=== PATIENT | female | born 1980 | race African-American/Black ===

== ENCOUNTER → 2016-05-05 | Day surgery (SDC) | payer MEDICARE, MEDICAID ==
--- NOTE | 2016-05-02 17:18 | Pre-op HX & Phy Repo 2 SIG ---
DATE OF ADMISSION: 05/05/2016 DATE OF SURGERY: 05/05/2016. PREOPERATIVE DIAGNOSIS: Vitreous opacification right eye with pupillary membrane. 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 She has had cataract surgery in the past and more recently had a vitrectomy in the right eye in November 2014 with very good results. She now complains of significant blurring on the right, which makes it difficult to doing her daily affairs. She is admitted for a repeat vitrectomy, steroid injection and removal of pupillary membrane and debride on the right eye. PAST MEDICAL HISTORY: Negative except for the uveitis and glaucoma. ALLERGIES: She has no known allergies. MEDICATIONS: Current medications include folic acid, ibuprofen, methotrexate, topical steroids, and anti glaucoma medications. PHYSICAL EXAMINATION: EYES: Best vision at the time of admission was 20/200 in the right eye and 20/60 in the left with pressures of 16. The anterior segment on the right showed an irregular pupil. There was extensive keratotic precipitates on the anterior lens surface and posterior cornea. Here were granulomatous precipitates on the lens and in the iris as well. Capture of the lens was seen by the iris and mild to moderate reaction was noted. A large hanging posterior capsular remnant, which had been previously attempted to be removed with the yanked laser was present partially blocking the view. The left fundus showed extensive flare in the anterior chamber and there were peripheral synechiae and iris pigment on the lens surface. The lens implant was in place. Fundus examination of the right eye was hazy secondary to the vitreous and the caps were debrided. There were laser scars down below at an area of retinoschisis. The remainder all attached however. The left fundus showed vitreous haze and debris. The retina was attached. ASSESSMENT: Severe uveitis of the right eye with retained capsular remnants. PLAN: The plan is to perform a pars plana vitrectomy with lysis and removal of capsular opacities. Additional endolaser will be performed if needed and a steroid injection at the conclusion of procedure. The risks and benefits of surgery gone over the patient including potential for infection, recurrent edema and uveitis, retinal detachment, worsening of the glaucoma, and remote possibility of loss of the eye. The risk of anesthesia was discussed. The patient understands and consents to the surgery, which will be performed on Thursday. Liban Lim M.D. DR: ROSA MARIA JOB#: [id number] CC:
[~2016-05-05] VITALS: Ht 160 cm; Wt 144.2 kg
[2016-05-05] VITALS (11 sets, daily range): BP systolic 100–143; BP diastolic 51–84
[~2016-05-05] MED LIST: BSS 15ml BTL ONE; BSS 500ml btl ONE; Bupivacaine 0.75% 30ml vial INJ ONE; Cyclopentolate 1% Opth Sol ONE; DEPO-PROVE150 MG/11 IM; Dexamethasone 4mg/ml vial ONE; DiphenhydrAMINE 50mg/ml Inj IVP PRN; EPINEPHrine 1mg/1ml Amp ONE; FOLIC ACID1 MG ORAL; Flurbiprofen 0.03% Opth Sol 2.5ml ONE; Gatifloxacin Opth Solution 0.5% ONE; Kenalog-10 5ml Inj ONE; Kenalog-40 1ml Vial ONE; LR 1000ml 1,000 ML IVLG SCH; LR 1000ml ONE; Lidocaine 2% MPF 5ml Vial INJ ONE; METHOTREXATE2.5 MG PO; Maxitrol Opth Oint 3.5gm ONE; Midazolam 2mg/2ml Inj ONE; NS Irrig 1000ml ONE; PRED-G 1% EYE DR5 ML OP; Phenylephrine 2.5% Op Soln ONE; Povidone-Iodine 5% opth solution ONE; Pred Forte 1% Opth Susp 1ml RIGHT EYE ONE; Propofol 10mg/ml 20ml IV ONE; Sodium Hyaluronate 10 mg/ml 0.85ml ONE; Sterile Water Irrig 1000ml IRRIG ONE; Tetracaine 0.5% Opth Soln ONE; Triamcinolone 40mg/ml PF Vial ONE; fentaNYL 100 mcg/2 mL IV ONE; fentaNYL 100 mcg/2 mL IV PRN
[2016-05-05] MEDS: Phenylephrine 2.5% Op Soln RIGHT EYE SCH ×3 (06:20→06:44)
[2016-05-05] MEDS: Cyclopentolate 1% Opth Sol RIGHT EYE SCH ×3 (06:20→06:44)
[2016-05-05] MEDS: Flurbiprofen 0.03% Opth Sol 2.5ml RIGHT EYE SCH ×3 (06:20→06:44)
[2016-05-05] MEDS: Gatifloxacin Opth Solution 0.5% RIGHT EYE SCH ×3 (06:20→06:45)
--- NOTE | 2016-05-05 07:49 | Pre-Procedure Note/Attestation ---
Pre-Procedure Note/Attestation Complete Prior to Procedure Planned Procedure: right Procedure Narrative: PPV, removal of pupillary membrane, kenalog injection R eye Indications for Procedure Pre-Operative Diagnosis: Vitreous opacification, pupillary membrane, R eye Attestation I attest that I discussed the nature of the procedure; its benefits; risks and complications; and alternatives (and the risks and benefits of such alternatives ), prior to the procedure, with the patient (or the patient's legal manufacturers service representative). I attest that, if there was a reasonable possibility of needing a blood transfusion, the patient (or the patient's legal manufacturers service representative) was given the [facility] standardized written summary, pursuant to the Eric Cumberland Blood Safety Act ([place] Health and Safety Code # 1645, as amended). I attest that I re-evaluated the patient just prior to the surgery and that there has been no change in the patient's H&P, except as documented below: MARILU JJ May 05, 2016 07:49
--- NOTE | 2016-05-05 08:12 | Anethesia Preoperative Eval ---
Anesthesia Pre-op PMH/ROS General Date of Evaluation: May 05, 2016 Time of Evaluation: 07:24 Anesthesiologist: Rosa ASA Score: ASA 3 Mallampati Score Class I : Soft palate, uvula, fauces, pillars visible Class II: Soft palate, uvula, fauces visible Class III: Soft palate, base of uvula visible Class IV: Only hard plate visible Mallampati Classification: Class III Surgeon: Raphael Diagnosis: R eye chronic uveitis Surgical Procedure: R eye PPV lense fragment removal Anesthesia History: none Family History: no anesthesia problems Allergies: Coded Allergies: No Known Allergies (Unverified , 08/15/14) Medications: see eMAR Past Medical History Cardiovascular: Reports: HTN - borderline, Denies: CAD, DC, arrhythmia, other, valve dz Pulmonary: Reports: ANDERSON, Denies: COPD, asthma, other Gastrointestinal/Genitourinary: Reports: GERD, Denies: CRI, ESRD, other Neurologic/Psychiatric: Reports: depression/anxiety, Denies: CVA, TIA, dementia, other Endocrine: Denies: DM, hypothyroidism, other, steroids HEENT: Reports: cataract (L), cataract (R) - s/p Sx, Denies: [place] (L), [place] (R), glaucoma, other Hematology/Immune: Reports: anemia - mild, Denies: DVT, bleeding disorder, other Musculoskeletal/Integumentary: Denies: DDD, DJD, OA, RA, edema, other Other: obesity - morbid obesity PMH Narrative: as above PSxH Narrative: C-sections x 2, BTL , multiple Eye Sx Anesthesia Pre-op Phys. Exam Physician Exam Last Vital Signs Date Time Temp Pulse Resp B/P Pulse Ox O2 Delivery O2 Flow Rate FiO2 05/05/16 06:27 97.9 90 18 100/51 97 Room Air Neurologic: CN 2-12 intact Cardiovascular: RRR Respiratory: CTA Gastrointestinal: other - obesity Airway Exam Mallampati Score: Class III MO: limited Neck: short ROM: limited Teeth: intact Dentures: no lower, no upper Anesthesia Pre-op A/P Labs see chart Studies Pre-op Studies: EKG - NSR Risk Assessment & Plan Assessment: ASA 3 Plan: MAC with retrobulbar block Status Change Before Surgery: No Pre-Antibiotics Drug: none BASSEM PHILIP M.D. May 05, 2016 08:12
--- NOTE | 2016-05-05 08:41 | Brief Operative Note ---
Immediate Post Operative Note Operative Note Chief Complaint: Progressively cloudy vision R eye Pre-op Diagnosis: Vitreous opacification, pupillary membrane, R eye Procedure: PPV, removal of pupillary membrane, enlargement of posterior capsule, endolaser , Kenalog injection R eye Post-op Diagnosis: same as pre-op Surgeon: Raphael Anesthesiologist: Anali Anesthesia: MAC Specimen: none Complications: none Condition: stable Estimated Blood Loss: none Drains: none Implant(s) used?: No MARILU JJ May 05, 2016 08:40
--- NOTE | 2016-05-05 09:24 | Immediate Post-Op Evaluation ---
Immediate Post-Op Evalulation Immediate Post-Op Evalulation Procedure: R eye PPV Date of Evaluation: May 05, 2016 Time of Evaluation: 08:40 IV Fluids: 200 Blood Products: none Estimated Blood Loss: min Urinary Output: none Blood Pressure Systolic: 136 Blood Pressure Diastolic: 72 Pulse Rate: 84 Respiratory Rate: 22 O2 Sat by Pulse Oximetry: 99 Temperature (Fahrenheit): 97.6 Pain Score (1-10): 2 Nausea: No Vomiting: No Complications none Patient Status: awake, patent, none Hydration Status: adequate BASSEM PHILIP M.D. May 05, 2016 09:24
--- NOTE | 2016-05-05 09:38 | Operative Note - Dictated ---
DATE OF OPERATION: 05/05/2016 PREOPERATIVE DIAGNOSIS: Severe uveitis with opacified posterior capsule and pupillary membrane, right eye. POSTOPERATIVE DIAGNOSIS: Severe uveitis with opacified posterior capsule and pupillary membrane, right eye. PROCEDURES: 1. Pars plana vitrectomy. 2. Removal of posterior capsule. 3. Removal of pupillary membrane. 4. Kenalog injection. 5. Endolaser, right eye. SURGEON: Liban Lim M.D. PRODUCT OWNER: None. ANESTHESIA: Local sedation. ANESTHESIOLOGIST: Yvon Briones M.D. JUSTIFICATION FOR SURGERY: This is a 35-year-old patient with very severe uveitis and noted progressive decline in the vision in the right eye. She was found to have opacification both of the posterior and anterior capsules, which did not respond to laser. BRIEF NOTE: The patient was brought to the operating room, placed on OR table in supine position. After time-out was performed and agreed upon by the staff, and initial monitoring secured by Dr. Briones, retrobulbar and Van Lint blocks were given in the standard way. When the blocks had taken effect, she was prepped and draped in normal manner. A lid speculum was inserted into the right eye. Using 23-gauge trocar system, cannulae were placed in all except infranasal quadrant. Infusion secured inferotemporally. Vitrectomy was begun posterior to the lens. Recurrent pearls and opacification of the posterior capsule were removed leaving a clear opening roughly 7 mm in size. Because of persistent opacification, a paracentesis was made using a 20-gauge MVR blade at the 10 o'clock position. Then using a membrane pick, the debris on the anterior surface of the lens was gently brushed away and removed leaving a clear surface. The view posteriorly was now improved. Peripheral vitreous was removed leaving a slightly smaller vitreous skirt. The macula appeared intact. An area of retinoschisis down below was well contained, but the band of laser was somewhat thin at . Because of this, the Endolaser was brought to the eye and an additional 165 lesions were applied to reinforce the inferior barricade. This went without difficulty. Scleral depression showed no new or threatening lesions. Kenalog, 2 mg was then injected. The cannulae were removed and the wounds massaged and noted to be self-sealing. Subconjunctival Decadron and gentamicin were then injected and Maxitrol and atropine ointments were instilled. The eye was patched and shielded. The patient was taken to recovery in excellent condition, there were no complications. Liban Lim M.D. DR: Kirk JOB#: [id number] CC: Liban Lim M.D. MTDHellen
--- NOTE | 2016-05-05 10:05 | 48 Hour Post Anesthesia Eval ---
Post Anesthesia Evaluation Procedure: R eye PPV Date of Evaluation: May 05, 2016 Time of Evaluation: 10:04 Blood Pressure Systolic: 138 0: 65 Pulse Rate: 79 Respiratory Rate: 20 Temperature (Fahrenheit): 97.6 O2 Sat by Pulse Oximetry: 98 Airway: patent Nausea: No Vomiting: No Pain Intensity: 2 Hydration Status: adequate Cardiopulmonary Status: stable Mental Status/LOC: patient returned to baseline Follow-up Care/Observations: n/a Post-Anesthesia Complications: none Follow-up care needed: ready to discharge BASSEM PHILIP M.D. May 05, 2016 10:05
== END | disposition home or self-care (01) ==
LOC: SUR 05:49
DX: H20.9 Unspecified iridocyclitis (principal); H43.391 Other vitreous opacities, right eye; H21.41 Pupillary membranes, right eye; H33.10 Unspecified retinoschisis; I10 Essential (primary) hypertension; G47.33 Obstructive sleep apnea (adult) (pediatric); K21.9 Gastro-esophageal reflux disease without esophagitis; E66.01 Morbid (severe) obesity due to excess calories; Z68.43 Body mass index [BMI] 50.0-59.9, adult; F32.9 Major depressive disorder, single episode, unspecified; F41.9 Anxiety disorder, unspecified; D64.9 Anemia, unspecified
CPT/HCPCS: 67039; J0171; J1100; J2250; J2704; J3010; J3301; J3470; J3490; J7120; 94003; 94150; J3300

== ENCOUNTER 2016-06-30 05:29 | Day surgery (SDC) | payer MEDICARE, MEDICAID ==
[2016-06-30] VITALS (9 sets, daily range): BP systolic 116–153; BP diastolic 67–90
[~2016-06-30] VITALS: Ht 160 cm; Wt 145.1 kg
[~2016-06-30 05:29] MED LIST changes: -BSS 15ml BTL ONE; -BSS 500ml btl ONE; -Bupivacaine 0.75% 30ml vial INJ ONE; -Dexamethasone 4mg/ml vial ONE; -DiphenhydrAMINE 50mg/ml Inj IVP PRN; -EPINEPHrine 1mg/1ml Amp ONE; -Kenalog-10 5ml Inj ONE; -Kenalog-40 1ml Vial ONE; -LR 1000ml 1,000 ML IVLG SCH; -LR 1000ml ONE; -Lidocaine 2% MPF 5ml Vial INJ ONE; -Maxitrol Opth Oint 3.5gm ONE; -Midazolam 2mg/2ml Inj ONE; -NS Irrig 1000ml ONE; -Povidone-Iodine 5% opth solution ONE; -Pred Forte 1% Opth Susp 1ml RIGHT EYE ONE; -Propofol 10mg/ml 20ml IV ONE; -Sodium Hyaluronate 10 mg/ml 0.85ml ONE; -Sterile Water Irrig 1000ml IRRIG ONE; -Tetracaine 0.5% Opth Soln ONE; -Triamcinolone 40mg/ml PF Vial ONE; -fentaNYL 100 mcg/2 mL IV ONE; -fentaNYL 100 mcg/2 mL IV PRN
[2016-06-30] MEDS: Phenylephrine 2.5% Op Soln LEFT EYE SCH ×3 (06:00→06:22)
[2016-06-30] MEDS: Cyclopentolate 1% Opth Sol LEFT EYE SCH ×3 (06:00→06:22)
[2016-06-30] MEDS ORDERED: Pred Forte 1% Opth Susp 1ml LEFT EYE ONE (06:00)
[2016-06-30] MEDS: Flurbiprofen 0.03% Opth Sol 2.5ml LEFT EYE SCH ×3 (06:00→06:22)
[2016-06-30] MEDS: Gatifloxacin Opth Solution 0.5% LEFT EYE SCH ×3 (06:00→06:23)
--- NOTE | 2016-06-30 06:33 | Pre-Procedure Note/Attestation ---
Pre-Procedure Note/Attestation Complete Prior to Procedure Planned Procedure: left Procedure Narrative: PPV, removal of vitreous debris, possible endolaser, removal of capsular and pupillary membranes, Kenalog injection L eye Indications for Procedure Pre-Operative Diagnosis: Vitreous debris and pupillary membrane L eye Attestation I attest that I discussed the nature of the procedure; its benefits; risks and complications; and alternatives (and the risks and benefits of such alternatives ), prior to the procedure, with the patient (or the patient's legal telemarketing sales representative). I attest that, if there was a reasonable possibility of needing a blood transfusion, the patient (or the patient's legal telemarketing sales representative) was given the [place] [facility] standardized written summary, pursuant to the Eric Jesus Blood Safety Act ([place] Health and Safety Code # 1645, as amended). I attest that I re-evaluated the patient just prior to the surgery and that there has been no change in the patient's H&P, except as documented below: MARILU JJ June 30, 2016 06:33
[2016-06-30] MEDS ORDERED: BSS 500ml btl ONE (06:53)
[2016-06-30] MEDS ORDERED: Maxitrol Opth Oint 3.5gm ONE (06:54)
[2016-06-30] MEDS ORDERED: Tetracaine 0.5% Opth Soln ONE (06:54)
[2016-06-30] MEDS ORDERED: Kenalog-40 1ml Vial ONE (06:54)
[2016-06-30] MEDS ORDERED: Dexamethasone 4mg/ml vial ONE (06:54)
[2016-06-30] MEDS ORDERED: Kenalog-10 5ml Inj ONE (06:55)
[2016-06-30] MEDS ORDERED: EPINEPHrine 1mg/1ml Amp ONE (06:55)
[2016-06-30] MEDS ORDERED: Triamcinolone 40mg/ml PF Vial ONE (06:55)
[2016-06-30] MEDS ORDERED: Lidocaine 2% MPF 5ml Vial INJ ONE (06:55)
[2016-06-30] MEDS ORDERED: Bupivacaine 0.75% 30ml vial INJ ONE (06:56)
[2016-06-30] MEDS ORDERED: Povidone-Iodine 5% opth solution ONE (06:56)
[2016-06-30] MEDS ORDERED: Sodium Hyaluronate 10 mg/ml 0.85ml ONE (06:56)
[2016-06-30] MEDS ORDERED: BSS 15ml BTL ONE (06:56)
[2016-06-30] MEDS ORDERED: NS Irrig 1000ml ONE (07:30)
[2016-06-30] MEDS ORDERED: fentaNYL 100 mcg/2 mL IV ONE (07:30)
[2016-06-30] MEDS ORDERED: Propofol 10mg/ml 20ml IV ONE (07:30)
[2016-06-30] MEDS ORDERED: LR 1000ml ONE (07:30)
[2016-06-30] MEDS ORDERED: Midazolam 2mg/2ml Inj ONE (07:30)
[2016-06-30] MEDS ORDERED: Sterile Water Irrig 1000ml IRRIG ONE (07:30)
--- NOTE | 2016-06-30 07:58 | Anethesia Preoperative Eval ---
Anesthesia Pre-op PMH/ROS General Date of Evaluation: June 30, 2016 Time of Evaluation: 07:18 Anesthesiologist: Anali ASA Score: ASA 3 Mallampati Score Class I : Soft palate, uvula, fauces, pillars visible Class II: Soft palate, uvula, fauces visible Class III: Soft palate, base of uvula visible Class IV: Only hard plate visible Mallampati Classification: Class III Surgeon: Raphael Diagnosis: Chronic uveitis Surgical Procedure: L eye PPV lense fragments removal Anesthesia History: none Family History: no anesthesia problems Allergies: Coded Allergies: No Known Allergies (Unverified , 08/15/14) Medications: see eMAR Past Medical History Cardiovascular: Denies: CAD, HTN, [place], arrhythmia, other, valve dz Pulmonary: Reports: ANDERSON, Denies: COPD, asthma, other Gastrointestinal/Genitourinary: Reports: GERD, Denies: CRI, ESRD, other Neurologic/Psychiatric: Denies: CVA, TIA, dementia, depression/anxiety, other Endocrine: Denies: DM, hypothyroidism, other, steroids HEENT: Reports: glaucoma Hematology/Immune: Denies: DVT, anemia, bleeding disorder, other Musculoskeletal/Integumentary: Denies: DDD, DJD, OA, RA, edema, other Other: obesity - morbid obesity PMH Narrative: as above PSxH Narrative: C section Eye Sx Anesthesia Pre-op Phys. Exam Physician Exam Last Vital Signs Date Time Temp Pulse Resp B/P Pulse Ox O2 Delivery O2 Flow Rate FiO2 06/30/16 06:11 97.5 77 20 123/73 99 Room Air Constitutional: NAD Neurologic: CN 2-12 intact Cardiovascular: RRR, no M/R/G Respiratory: CTA Gastrointestinal: other - obesity Airway Exam Mallampati Score: Class III MO: full Neck: short ROM: full Teeth: intact Dentures: no lower, no upper Anesthesia Pre-op A/P Labs see chart Urine Test Test 06/30/16 05:45 Urine HCG, Qualitative Negative Risk Assessment & Plan Assessment: ASA 3 Plan: MAC with retrobulbar block Status Change Before Surgery: No Pre-Antibiotics Drug: none BASSEM PHILIP M.D. June 30, 2016 07:58
[2016-06-30] MEDS ORDERED: LR 1000ml 1,000 ML IVLG SCH (08:07)
[2016-06-30] MEDS ORDERED: Meperidine 25mg/0.5ml Inj IV PRN (08:15)
[2016-06-30] MEDS ORDERED: DiphenhydrAMINE 50mg/ml Inj IVP PRN (08:15)
--- NOTE | 2016-06-30 08:39 | Immediate Post-Op Evaluation ---
Immediate Post-Op Evalulation Immediate Post-Op Evalulation Procedure: L eye PPV lense fracments removal Date of Evaluation: June 30, 2016 Time of Evaluation: 08:37 IV Fluids: 400 Blood Products: none Estimated Blood Loss: min Urinary Output: none Blood Pressure Systolic: 143 Blood Pressure Diastolic: 91 Pulse Rate: 76 Respiratory Rate: 22 O2 Sat by Pulse Oximetry: 99 Temperature (Fahrenheit): 97.6 Pain Score (1-10): 2 Nausea: No Vomiting: No Complications none Patient Status: awake, patent, none Hydration Status: adequate BASSEM PHILIP M.D. June 30, 2016 08:38
--- NOTE | 2016-06-30 08:39 | Brief Operative Note ---
Immediate Post Operative Note Operative Note Chief Complaint: Extremely cloudy vision L eye Pre-op Diagnosis: Vitreous debris and pupillary membrane L eye Procedure: PPV, removal of pupillary membrane, Kenalog injection L eye Post-op Diagnosis: same as pre-op Surgeon: isaac Anesthesiologist: Anali Anesthesia: MAC Specimen: none Complications: none Condition: stable Estimated Blood Loss: none Drains: none Implant(s) used?: No MARILU JJ June 30, 2016 08:39
--- NOTE | 2016-06-30 11:51 | 48 Hour Post Anesthesia Eval ---
Post Anesthesia Evaluation Procedure: L eye PPV lense fracments removal Date of Evaluation: June 30, 2016 Time of Evaluation: 11:49 Blood Pressure Systolic: 148 0: 67 Pulse Rate: 72 Respiratory Rate: 22 Temperature (Fahrenheit): 97.5 O2 Sat by Pulse Oximetry: 98 Airway: patent Nausea: No Vomiting: No Pain Intensity: 1 Hydration Status: adequate Cardiopulmonary Status: stable Mental Status/LOC: patient returned to baseline Follow-up Care/Observations: n/a Post-Anesthesia Complications: none Follow-up care needed: ready to discharge BASSEM PHILIP M.D. June 30, 2016 11:51
[2016-06-30] MEDS ORDERED: Norco 5mg/325mg tab ORAL PRN (13:01)
--- NOTE | 2016-06-30 13:16 | Operative Note - Dictated ---
DATE OF OPERATION: 06/30/2016 PREOPERATIVE DIAGNOSIS: Vitreous opacification with pupillary membrane, left eye. POSTOPERATIVE DIAGNOSIS: Vitreous opacification with pupillary membrane, left eye. PROCEDURES: 1. Pars plana vitrectomy. 2. Removal of pupillary membrane. 3. Kenalog injection, left eye. SURGEON: Liban Lim M.D. CARBON PASTE MIXER OPERATOR: None. ANESTHESIA: Local sedation. ANESTHESIOLOGIST: Yvon Briones M.D JUSTIFICATIONS OF SURGERY: This patient with severe and longstanding uveitis developed a recurrence of a dense inflammatory pupillary membrane, which obscured vision. There was also significant vitreous opacification, and debris. She was admitted for surgery. BRIEF NOTE: The patient was brought to the operating room, placed on operating room table in supine position. After time-out was performed and agreed upon by the staff, and initial monitoring secured by Dr. Briones, retrobulbar and Van Lint blocks given the standard way. When the blocks taken effect. She was prepped and draped in normal manner. A lid speculum was inserted to the left eye. Using a 23-gauge trocar system cannulas were placed in all except infranasal and all except the inferoarm temporal quadrant. Infusion secured inferonasally. Vitrectomy was begun posterior to the lens. Accumulated capsular debris was removed. The view was noted to be extremely cloudy so attention was paid to the anterior segment. A paracentesis was made at the 10 o'clock position using a 23-gauge MVR blade. Healon was injected to form and stabilize the anterior segment. The MVR blade was used to incise a dense pupillary membrane and remove multiple iris adhesions. Intra-ocular forceps were then introduced and the remnants of the pupillary membrane were removed from the eye. The Healon was evacuated and the wound closed with a single knot of 10-0 nylon suture. The posterior segment was then more clearly visualized and the vitrectomy continued. Peripheral vitreous was removed leaving only a very small vitreous skirt. Kenalog was used to aid in visualization of the vitreous. Once the cavity was cleared, scleral depression was performed and no peripheral breaks, tears, or detachments were seen. An additional 2 mg of Kenalog was injected. The cannulas were then removed from the eye and all wounds noted to be self-sealing. Subconjunctival Decadron and gentamicin were then injected inferiorly and atropine, prednisolone, and gatifloxacin drops were instilled. Maxitrol ointment was also instilled and the eye was patched and shielded. The patient was taken to recovery in excellent condition. There were no complications. Liban Lim M.D. DR: Guido JOB#: [id number] CC: Liban Lim M.D.; Fax#: [phone] Olivares M.D.; Referring Physician on staff at [place] ; Fax#: [phone] [facility]
== END 2016-06-30 09:40 | disposition home or self-care (01) ==
LOC: SUR 05:29
DX: H43.392 Other vitreous opacities, left eye (principal); H21.42 Pupillary membranes, left eye; H20.13 Chronic iridocyclitis, bilateral; H40.9 Unspecified glaucoma; G47.33 Obstructive sleep apnea (adult) (pediatric); K21.9 Gastro-esophageal reflux disease without esophagitis; E66.01 Morbid (severe) obesity due to excess calories
CPT/HCPCS: 67030; 81025; J0171; J1100; J2250; J2704; J3010; J3301; J3470; J3490; J7120; 94003; 94150; J3300

== ENCOUNTER → 2019-10-24 | Day surgery (SDC) | payer OTHER, MEDICAID ==
--- NOTE | 2019-10-20 13:15 | Pre-op HX & Phy Repo 2 SIG ---
DATE OF ADMISSION: 10/24/2019 DATE OF SURGERY: October 24, 2019. PREOPERATIVE DIAGNOSIS: Vitreous opacification with intra-ocular lens capture by iris, right eye. BRIEF NOTE: This is the first [place] retinal surgery admission for the patient who is a 39-year-old lady with a long history of severe uveitis bilaterally. She has been maintained on multiple medications post systemic and topical. She has had cataract surgery in both eyes. She has also had prior vitrectomies with two procedures done in the right eye in August 2014 and April 2016 as well as a vitrectomy done on the left eye in August 2014. She also has a history of glaucoma. MEDICATIONS: Current medications include folic acid, vitamin D, and ibuprofen. ALLERGIES: She has no known allergies. PHYSICAL EXAMINATION: Best vision at the time of admission was counting fingers at 3 feet in the right eye and 20/80 in the left. The pressures were 3 and 6. The anterior chamber on the right showed extensive corneal precipitates. There was capture of the intra-ocular lens by the iris from the 10 o'clock to the 1 o'clock positions. The lens appeared to be otherwise in reasonable position. Extensive debris was noted both on the anterior and posterior surfaces of the lens. The left anterior segment showed a few precipitates. There was a mild reaction with 1+ flare. Pigment was noted on the iris surface mainly anteriorly. The fundus on the right eye was poorly seen. Scattered old laser scars were noted as well as retinoschisis at the 6 o'clock position. The left fundus was hazy, which showed a normal nerve. The macula and periphery appeared benign. General physical examination will be updated by Dr. Harmon. ASSESSMENT: Severe uveitis in both eyes with inflammation and IOL capture by the iris, right eye. PLAN: The plan is to perform a pars plana vitrectomy with clearing of the vitreous debris and posterior capsular debris. In addition, mild dissection of the anterior chamber will be done with attempted repositioning the intra-ocular lens. The risks and benefits of surgery gone over with the patient with potential infection, hemorrhage, lens dislocation, retinal detachment, remote possibility of loss of the eye, the risk of anesthesia was discussed. The patient understands and consents to the surgery, which will be performed on Thursday. Liban Lim M.D. DR: ROM JOB#: [id number] CC: SUHAIL
[2019-10-21 12:21] LABS: BASOPHILS % (AUTO) 2.7 % (0.0-2.0); EOSINOPHILS % (AUTO) 1.2 % (0.0-3.0); HEMATOCRIT 38.7 % (37.0-47.0); HEMOGLOBIN 12.6 G/DL (12.0-16.0); LYMPHOCYTES % (AUTO) 19.4 % (20.0-45.0); MEAN CORPUSCULAR VOLUME 91 FL (80-99); MONOCYTES % (AUTO) 7.4 % (1.0-10.0); NEUTROPHILS % (AUTO) 69.3 % (45.0-75.0); PLATELET COUNT 237 K/UL (150-450); RED BLOOD COUNT 4.26 M/UL (4.20-5.40); RED CELL DISTRIBUTION WIDTH 11.7 % (11.6-14.8); WHITE BLOOD COUNT 8.7 K/UL (4.8-10.8)
[2019-10-21 12:39] LABS: ANION GAP 5 mmol/L (5-15); BLOOD UREA NITROGEN 13 mg/dL (7-18); CALCIUM 8.8 MG/DL (8.5-10.1); CARBON DIOXIDE 29 MMOL/L (21-32); CHLORIDE 105 MMOL/L (98-107); CREATININE 0.7 MG/DL (0.55-1.30); POTASSIUM 3.9 MMOL/L (3.5-5.1); SODIUM 138 MMOL/L (136-145)
--- NOTE | 2019-10-21 15:29 | Pre-op HX & Phy Repo 2 SIG ---
DATE OF ADMISSION: 10/24/2019 PRESURGICAL INTERNAL MEDICINE HISTORY AND PHYSICAL DATE OF EVALUATION: 10/21/2019. REASON FOR EVALUATION: I was asked by Dr. Liban Lim to see this 39-year-old female, who is going for elective surgery of the right eye on October 24, 2019. The patient has dislocated lens, right eye. The patient was evaluated at the outpatient procedure of [facility]. Chart was reviewed. PAST MEDICAL HISTORY AND REVIEW OF SYSTEMS: Remarkable for morbid obesity, weight of 351 pounds. No history of diabetes. Denies history of hypertension. No history of respiratory problem, asthma, or bronchitis. No myocardial infarction. The patient has a history of glaucoma. No GI problem. No respiratory problem. PAST SURGICAL HISTORY: Dislocated lens, glaucoma, x2 and tubal ligation. FAMILY HISTORY: Parents alive, okay. ALLERGIES: Not known. MEDICATIONS: Present medications are methotrexate 2.5 mg daily, folic acid, ibuprofen 800 mg daily, and Flexeril 10 mg. HABITS: Denies history of smoking or alcohol habits. No street drugs. PHYSICAL EXAMINATION: GENERAL: Alert and awake, obese female in her 40s, in no acute distress. SKIN: Clear, warm. No rashes. LYMPHATICS: Lymph nodes are not enlarged. HEENT: Eyes, full description per Dr. Liban Lim. Mouth, clear and moist. No dentures. NECK: Supple. No lymph node enlargement. Thyroid gland, not enlarged. LUNGS: No rales or rhonchi. HEART: Sounds distant. No ectopy. No murmur. No S3, S4. ABDOMEN: Soft, obese. No palpable mass. Liver and spleen not enlarged. EXTREMITIES: Right knee degenerative joint disease and varicose vein in right calf. No calf tenderness. GENITOURINARY: No dysuria. No CVA tenderness. NEUROLOGICAL: No tremor. No nystagmus. LABORATORY AND DIAGNOSTIC DATA: ECG done today shows ventricular rate 77, P axis, possible ectopic atrial rhythm, right ventricular hypertrophy, lateral PR old and inferior PR old. EKG was repeated twice with same results. Laboratory work obtained is pending include COVID-19. IMPRESSION: 1. Dislocated lens, right eye. 2. Morbid obesity. 3. Degenerative joint disease, knee. PLAN: Pars plana vitrectomy, reposition of lens, right eye per Dr. Liban Lim. CONCLUSION: The patient is a 39-year-old female who has a dislocated right lens and morbid obesity as a risk factor. She is to be NPO Thursday night prior to surgery for at least 8 hours. Thank you very much, Dr. Liban iLm, for privilege to participate in presurgical care of this interesting patient. Antonio Harmon M.D. DR: TARIQ JOB#: [id number] CC:
[2019-10-24] VITALS (9 sets, daily range): BP systolic 142–159; BP diastolic 68–94
[~2019-10-24] VITALS: Ht 157.5 cm; Wt 159.2 kg
[~2019-10-24] MED LIST changes: +BSS 15ml BTL ONE; +BSS 500ml btl ONE; +Bupivacaine 0.75% 30ml vial INJ ONE; +Carbachol 0.01% Op Soln 1.5ml vial ONE; -Cyclopentolate 1% Opth Sol ONE; +DUREZOL5 M1 OP; +EPINEPHrine 1mg/1ml Amp ONE; -Flurbiprofen 0.03% Opth Sol 2.5ml ONE; -Gatifloxacin Opth Solution 0.5% ONE; +HYDROcodone/Acetamin 5/325 tab ORAL PRN; +Kenalog-10 5ml Inj ONE; +Kenalog-40 1ml Vial ONE; +LR 1000ml ONE; +Lidocaine 1% MPF 10mg/ml 5ml ONE; +Lidocaine 2% MPF 5ml Vial INJ ONE; +Maxitrol Opth Oint 3.5gm ONE; +Metoclopramide 10mg/2ml Inj IVP PRN; +Metoclopramide 10mg/2ml Inj ONE; +Midazolam 2mg/2ml Inj ONE; +NS Irrig 1000ml ONE; +PREDNISONE20 M1 PO; +Phenylephrine 10mg/ml Vial ONE; -Phenylephrine 2.5% Op Soln ONE; +Povidone-Iodine 5% opth solution ONE; +Sodium Hyaluronate 10 mg/ml 0.85ml ONE; +Solu-MEDROL 40mg Inj ONE; +Sterile Water Irrig 1000ml IRRIG ONE; +Succinylcholine 20mg/ml 10ml vial ONE; +Tetracaine 0.5% Opth 4ml Soln ONE; +VITAMIN D3 COM1 EACH PO; +fentaNYL 100 mcg/2 mL IV ONE; +fentaNYL 100 mcg/2 mL IV PRN; +prednisoLONE acetate 1% Opth Susp 1ml ONE; +prednisoLONE acetate 1% Opth Susp 1ml RIGHT EYE SCH
[2019-10-24] MEDS: Phenylephrine 2.5% Op 2ml Soln RIGHT EYE SCH ×2 (05:36→05:45)
[2019-10-24] MEDS: Flurbiprofen 0.03% Opth Sol 2.5ml RIGHT EYE SCH ×2 (05:36→05:46)
[2019-10-24] MEDS: Vigamox Opth Soln 3ml RIGHT EYE SCH ×2 (05:36→05:46)
[2019-10-24] MEDS: Cyclopentolate 1% Opth Sol 2ml RIGHT EYE SCH ×2 (05:36→05:46)
--- NOTE | 2019-10-24 07:33 | Pre-Procedure Note/Attestation ---
Pre-Procedure Note/Attestation Complete Prior to Procedure Planned Procedure: right Procedure Narrative: PPV, removal of iris adhesions and reposition of IOL, Kenalog injection RIGHT eye Indications for Procedure Pre-Operative Diagnosis: Vitreous opacification, iris capture of IOL RIGHT eye Attestation I attest that I discussed the nature of the procedure; its benefits; risks and complications; and alternatives (and the risks and benefits of such alternatives ), prior to the procedure, with the patient (or the patient's legal patient service representative). I attest that, if there was a reasonable possibility of needing a blood transfusion, the patient (or the patient's legal patient service representative) was given the [facility] standardized written summary, pursuant to the [place] Blood Safety Act ([place] Health and Safety Code # 1645, as amended). I attest that I re-evaluated the patient just prior to the surgery and that there has been no change in the patient's H&P, except as documented below: Liban Lim MD Oct 24, 2019 07:33
--- NOTE | 2019-10-24 09:00 | Immediate Post-Op Evaluation ---
Immediate Post-Op Evalulation Immediate Post-Op Evalulation Procedure: right eye vitrectomy Date of Evaluation: Oct 24, 2019 Time of Evaluation: 08:59 IV Fluids: 600 Blood Pressure Systolic: 142 Blood Pressure Diastolic: 90 Pulse Rate: 88 Respiratory Rate: 14 O2 Sat by Pulse Oximetry: 99 Temperature (Fahrenheit): 97.6 Nausea: No Vomiting: No Complications none Patient Status: awake, reacts, patent Hydration Status: adequate Drug: none RenettariYelitza bustillo CRNA Oct 24, 2019 09:00
--- NOTE | 2019-10-24 09:01 | Brief Operative Note ---
Immediate Post Operative Note Operative Note Chief Complaint: Blurred vision RIGHT eye Pre-op Diagnosis: Vitreous opacification, iris capture of IOL RIGHT eye Procedure: PPV, removal of anterior and posterior pupillary membranes, reformation of peripheral iridotomy, injection of intravitreal kenalog RIGHT eye Post-op Diagnosis: same as pre-op Surgeon: Raphael Electric Range Assembler: Kennedi Anesthesia: general Specimen: none Complications: none Condition: stable Fluids: Per Anesthesia Estimated Blood Loss: none Drains: none Implant(s) used?: No Liban Lim MD Oct 24, 2019 09:01
--- NOTE | 2019-10-24 09:02 | Anethesia Preoperative Eval ---
Anesthesia Pre-op PMH/ROS General Date of Evaluation: Oct 24, 2019 Time of Evaluation: 07:30 Anesthesiologist: nancy ASA Score: ASA 3 Mallampati Score Class I : Soft palate, uvula, fauces, pillars visible Class II: Soft palate, uvula, fauces visible Class III: Soft palate, base of uvula visible Class IV: Only hard plate visible Mallampati Classification: Class III Surgeon: isaac Diagnosis: dilocated lens Surgical Procedure: pars plana vitrectomy right eye Anesthesia History: none Family History: no anesthesia problems Allergies: Coded Allergies: No Known Allergies (Unverified , 08/15/14) Medications: see eMAR Patient NPO?: Yes NPO Date: Oct 24, 2019 NPO Time: 00:01 Past Medical History Cardiovascular: Denies: HTN, CAD, [place], valve dz, arrhythmia, other Pulmonary: Reports: ANDERSON - with cpap; Denies: asthma, COPD, other Gastrointestinal/Genitourinary: Denies: GERD, CRI, ESRD, other Neurologic/Psychiatric: Denies: dementia, CVA, depression/anxiety, TIA, other Endocrine: Denies: DM, hypothyroidism, steroids, other Hematology/Immune: Denies: anemia, DVT, bleeding disorder, other Musculoskeletal/Integumentary: Denies: OA, RA, DJD, DDD, edema, other Other: obesity - super morbid PSxH Narrative: multiple eye surgery Anesthesia Pre-op Phys. Exam Physician Exam Last Vital Signs Date Time Temp Pulse Resp B/P (MAP) Pulse Ox O2 Delivery O2 Flow Rate FiO2 10/24/19 05:40 Room Air 10/24/19 05:40 97.1 18 142/81 98 Constitutional: NAD Neurologic: CN 2-12 intact Cardiovascular: RRR Respiratory: CTA Gastrointestinal: S/NT/ND Airway Exam Mallampati Classification 3 Mallampati Score: Class III MO: limited Neck: thick TMD: 1fb ROM: limited Dentures: no upper, no lower Anesthesia Pre-op A/P Studies Pre-op Studies: EKG - sr Risk Assessment & Plan Assessment: covid neg; denies cp; sob Plan: general Status Change Before Surgery: No Pre-Antibiotics Drug: none Yelitza Nick CRNA Oct 24, 2019 09:02
--- NOTE | 2019-10-24 09:29 | Operative Note - Dictated ---
DATE OF OPERATION: 10/24/2019 PREOPERATIVE DIAGNOSIS: Vitreous opacification with dense pupillary membrane and IOL dislocation, right eye. POSTOPERATIVE DIAGNOSIS: Vitreous opacification with dense pupillary membrane and IOL dislocation, right eye. PROCEDURES: 1. Pars plana vitrectomy. 2. Removal of anterior and posterior pupillary membranes. 3. Kenalog injection, right eye. SURGEON: Liban Lim MD. SAND CASTER: None. ANESTHESIA: LMA general. 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 BRIEF NOTE: The patient was brought to the operative room, placed on OR table in supine position. After a time-out was performed and agreed upon by the staff and initial monitoring secured by anesthesia LMA general anesthetic was induced. Retrobulbar and Van Lint blocks were given in an effort to diminish the need for intraoperative anesthetics and decreased postoperative pain. The patient was then prepped and draped in normal manner. A lid speculum inserted into the right eye. Using a 23-gauge trocar system, cannulas were placed in all except infranasal quadrant. Infusion secured inferotemporally. Using the vitreous cutter, the posterior pupillary membrane was gently dissected leaving a clear posterior pupillary opening. The MVR blade was used to form a sclerotomy at the 11 o'clock position and through this with a combination of the intra-ocular scissors and intra-ocular forceps, the anterior pupillary membrane was removed. An attempt was made to find a dissection plane between the iris and the capsule/pupillary membrane but this was felt to be not possible without the risk of significant bleeding or fracture of the haptics and posterior dislocation of the lens. Because the pupil was in adequate position and clear it was elected to leave the lens in its current position. Healon had been used to stabilize the anterior chamber for this maneuver. Using the vitreous cutter, the superior iridotomy was reopened where it had been previously closed by capsule. The posterior viewing lens was inserted and the retina was noted to be all attached. A laser barricade to an inferior break was seen to be holding nicely and no additional peripheral tears or detachments were seen. The vessels were noted to be significantly sclerotic however. At this juncture, the superior cannulas were removed from the eye and each of the sclerotomies was closed with 8-0 Vicryl suture. Through the inferotemporal sclerotomy, 2 mg of Kenalog were injected. The cannula here was removed and the sclerotomy also closed. Subconjunctival Decadron and gentamicin were then injected and topical Maxitrol drops, atropine drops, prednisolone drops, and Maxitrol ointment instilled. The eye was patched and shielded. Prior to closure, the Healon was evacuated from the anterior chamber and replaced with balanced salt solution. After patching and shielding, the patient was extubated and left the recovery room in excellent condition. Liban Lim M.D. DR: Tati JOB#: [id number] CC: Liban Lim M.D.; Fax#: [phone] [facility] FACILITYHellen
--- NOTE | 2019-10-24 10:02 | 48 Hour Post Anesthesia Eval ---
Post Anesthesia Evaluation Procedure: right eye vitrectomy Date of Evaluation: Oct 24, 2019 Time of Evaluation: 10:01 Blood Pressure Systolic: 145 0: 68 Pulse Rate: 85 Respiratory Rate: 14 O2 Sat by Pulse Oximetry: 99 Airway: patent Nausea: No Vomiting: No Hydration Status: adequate Cardiopulmonary Status: stable Mental Status/LOC: patient returned to baseline Follow-up Care/Observations: na Post-Anesthesia Complications: none Follow-up care needed: N/A Yelitza Nick CRNA Oct 24, 2019 10:02
--- NOTE | 2019-10-26 22:05 | Cardiology Report ---
APPROVED REPORT EKG Measurement Heart [id number] [place] [id number] <Conclusion> Suspect arm lead reversal, interpretation assumes no reversal Unusual P axis, possible ectopic atrial rhythm with undetermined rhythm irregularity Right ventricular hypertrophy Inferior infarct, age undetermined Anterolateral infarct, age undetermined Abnormal ECG
== END | disposition home or self-care (01) ==
LOC: SUR 05:08
DX: H43.391 Other vitreous opacities, right eye (principal); H20.9 Unspecified iridocyclitis; T85.22XA Displacement of intraocular lens, initial encounter; X58.XXXA Exposure to other specified factors, initial encounter; Y92.9 Unspecified place or not applicable; E66.01 Morbid (severe) obesity due to excess calories; Z79.899 Other long term (current) drug therapy; M17.10 Unilateral primary osteoarthritis, unspecified knee; G47.33 Obstructive sleep apnea (adult) (pediatric); Z68.44 Body mass index [BMI] 60.0-69.9, adult
CPT/HCPCS: 36415; 67025; 67036; 80048; 85025; 93005; 94003; J0171; J0330; J1100; J2250; J2370; J2405; J2704; J2765; J3010; J3301; J3470; J3490; J7120; U0002; 94150